=== PATIENT | male | born 1995 | race Hispanic/Latino ===

== ENCOUNTER 2019-10-27 06:48 | Emergency (ER) | payer OTHER ==
[~2019-10-27] VITALS: Ht 165.1 cm; Wt 79.6 kg
--- NOTE | 2019-10-27 08:05 | REP ---
Chest x-ray: Two views. History: Left lower anterior chest pain . Comparison study: No comparison study . Findings: The lungs are well inflated and free of infiltrate. The pleural angles are sharp. The heart size is normal. Pulmonary vasculature is not increased. No significant bony abnormality is seen. Impression: Negative chest x-ray. Electronically Signed by Yuri Crum MD 10/27/2019 07:57 A
[2019-10-27] MEDS ORDERED: NAPROXEN 250 MG TAB PO ONE (08:45)
[2019-10-27] MEDS ORDERED: NAPR-837 PO (08:50)
[2019-10-27] MEDS ORDERED: BENZ200C70 PO (08:50)
[2019-10-27 09:19] VITALS: BP 144/63
--- NOTE | 2019-10-28 17:45 | ECGEPIP ---
[facility] - ED Test Date: 2019-10-27 Pat Name: HOMERO GUZMAN Department: Room: - Gender: Male [employer]: : 1995 Requested By: FRANCOISE CABRERA PA-C. Order Number: [id number] Reading MD: Hoda Capone Measurements Intervals [place] Rate: 72 P: 66 CA: 183 QRS: 7 QRSD: 100 T: -2 QT: 383 QTc: 419 Interpretive Statements SINUS RHYTHM NO PRIOR Electronically Signed on 10-28-2019 17:44:50 EST by Hoda Capone
== END 2019-10-27 09:07 | disposition home or self-care (01) ==
LOC: M ED 06:48
DX: J06.9 Acute upper respiratory infection, unspecified (principal); S29.011A Strain of muscle and tendon of front wall of thorax, initial encounter; X58.XXXA Exposure to other specified factors, initial encounter; Y92.89 Other specified places as the place of occurrence of the external cause